=== PATIENT | female | born 1985 | race Caucasian/White ===

== ENCOUNTER 2022-08-07 17:56 | Inpatient (IN) | payer OTHER, SELFPAY ==
--- NOTE | ~2022-08-07 | US_ITS ---
EXAMINATION: US VENOUS ULTRASOUND WITH DOPPLER LOWER EXTREMITY, RIGHT CLINICAL INFORMATION: Right lower extremity pain and swelling. COMPARISON: None TECHNIQUE: Ultrasound of the deep veins is performed from the hip to the calf with compression sonography and color and pulse Doppler assessment. Spectral analysis with color-flow imaging is performed. FINDINGS: There is normal venous compression and respiratory variation and augmented flow. The visualized common femoral vein, superficial femoral vein, profunda femoral vein, popliteal vein and posterior tibialis veins show no evidence of deep venous thrombosis. The peroneal veins were not visualized secondary to patient body habitus and subcutaneous edema. There is no significant popliteal fossa cyst. If the patient's symptoms persist, followup ultrasound in 5 days 7 days might be of value to exclude proximal propagation from a non-visualized calf vein. US/US venous duplex LE RT IMPRESSION: 1. No DVT demonstrated in the right lower extremity with the caveat of suboptimal evaluation of the peroneal veins. 2. Significant soft tissue swelling, nonspecific, correlate with physical examination.
[2022-08-07 18:46] VITALS: BP 155/61; PULSE 94; RESP 20; TEMP 36.9; O2SAT 96; BMI 62.0
--- NOTE | 2022-08-07 18:58 | ED.GENADULT ---
HPI - General Adult General Chief complaint: Skin/Abscess/Foreign Body Stated complaint: Right leg swelling/discoloration Time Seen by Provider: 08/07/22 23:04 Source: patient Mode of arrival: ambulatory Limitations: no limitations History of Present Illness HPI narrative: Patient with lymphedema, diabetes with recurrent cellulitis comes here for increased redness of the right leg for last 3 - 4 days is getting worse now with history chills yesterday left over amoxicillin which she took yesterday.. No nausea no vomiting no significant pain in the leg no shortness of breath Related Data Allergies Allergy/AdvReac Type Severity Reaction Status Date / Time red dye Allergy Gastrointestinal Verified 08/07/22 18:53 Upset scallops Allergy Unknown Verified 08/07/22 18:53 Review of Systems Review of Systems: Yes all other systems are reviewed and are negative [facility] Past Medical History Medical History Diabetes GERD (gastroesophageal reflux disease) Lymphedema Social History Social History Advance Directives: No Advance Directives Information Provided: No Physical Exam ED Vital Signs: Vital Signs - 24 hr 08/07/22 18:46 08/07/22 23:08 Temperature 98.5 F 98.3 F Pulse Rate 94 86 Respiratory Rate 20 19 Blood Pressure 155/61 H 188/110 H Pulse Oximetry 96 96 Oxygen Delivery Method Room Air Room Air BMI result Body Mass Index 62.0 Appearance: Alert. Oriented X3. No acute distress. Eyes: PERRLA, No Nystagmus ENT: Pharynx normal. Oral Mucosa moist Neck: Normal inspection. Neck supple. CVS: Normal heart rate and rhythm. Pulses normal. Respiratory: No respiratory distress. Equal air entry bilateral, no wheezing/rales/rhonchi Abdomen: Soft and nontender. Bowel sounds are present, no mass palpable, no CVA tenderness Skin: Skin warm and dry. Cellulitic changes right leg Extremities: Lymphadema+ No calf tenderness significant redness and warmth right lower extremity all the way till knee with intact blister Neuro: Oriented X 3. No motor deficit. Medications Administered Generic Name Dose Route Start Last Admin Trade Name Freq PRN Reason Stop Dose Admin Enoxaparin Sodium 40 mg 08/08/22 00:45 08/08/22 03:15 Enoxaparin Sodium 40 Mg/0.4 Ml Syringe SUBCUT 40 mg Q24H SARA Administration Discontinued Medications Generic Name Dose Route Start Last Admin Trade Name Yaya PRN Reason Stop Dose Admin Vancomycin HCl 2,000 mg/ 540 mls @ 270 mls/hr 08/07/22 23:23 08/08/22 02:49 Sodium Chloride IV 08/08/22 01:22 270 mls/hr ONCE ONE Administration Piperacillin Sod/Tazobactam 100 mls @ 200 mls/hr 08/07/22 23:23 08/08/22 03:20 Sod 4.5 gm/ Sodium Chloride IV 08/07/22 23:52 Infused ONCE ONE Infusion Sodium Chloride 1,000 mls @ 999 mls/hr 08/07/22 23:24 08/08/22 00:22 Ns IV 08/08/22 00:24 999 mls/hr .Q1H1M ONE Administration Medical Decision Making Medical Decision Making MDM Narrative: Patient lymphedema with significant cellulitis of the right leg start patient on vancomycin and Zosyn Lab Data MDM Lab Attestation statement: I reviewed the patient's lab results. 08/07/22 19:08 08/07/22 19:08 Labs: Lab Results 08/07/22 08/07/22 08/07/22 Range/Units 19:08 19:08 19:08 WBC 6.9 (4.8-10.8) X10*3/uL RBC 4.43 (4.20-5.50) X10*6/uL Hgb 11.3 L (12.0-16.0) g/dl Hct 35.4 L (37.0-47.0) % MCV 79.9 L (80.0-98.0) fL MCH 25.5 L (27.0-33.0) pg MCHC 31.9 (31.0-35.0) g/dl RDW 15.2 (11.0-16.0) % Plt Count 228 (160-400) X10*3/uL MPV 8.4 L (9.4-12.3) fL Immature Gran % (Auto) 0.6 H (0.0-0.4) % Neut % (Auto) 74.1 H (45-73) % Lymph % (Auto) 18.8 L (20-40) % [place] % (Auto) 6.1 (2-11) % Eos % (Auto) 0.3 (0-4) % Baso % (Auto) 0.1 (0-2) % Lymph # (Auto) 1.3 (1.2-4.9) X10*3/uL [place] # (Auto) 0.4 (0.1-1.2) X10*3/uL Eos # (Auto) 0.0 (0.0-0.4) X10*3/uL Baso # (Auto) 0.0 (0.0-0.2) X10*3/uL Abs Immat Gran (auto) 0.04 H (0.00-0.03) X10*3/uL Absolute Neuts (auto) 5.1 (2.0-8.3) x10*3/uL Absolute Nucleated RBC 0.000 (0.0-0.012) X10*3/uL Nucleated RBC % (auto) 0.0 (0.0-0.2) /100WBC ESR 87 H (0-20) MM/HR Sodium 139 (135-145) mmol/L Potassium 3.8 (3.3-5.1) mmol/L Chloride 105 (96-108) mmol/L Carbon Dioxide 24 (22-29) mmol/L Anion Gap 14 (12-20) BUN 14 (9-16) mg/dL Creatinine 0.90 (0.5-1.4) mg/dL Estim Creat Clear Calc 156.6 Estimated GFR > 60 Random Glucose 248 H (60-115) mg/dL Lactic Acid (0.5-2.0) mmol/L Calcium 8.8 (8.4-10.2) mg/dL Total Bilirubin 0.5 (0.0-1.0) mg/dL AST 16 (5-31) U/L ALT 16 (0-31) U/L Alkaline Phosphatase 99 (39-117) U/L C-Reactive Protein 20.30 H (< or = 0.50) mg/dL Total Protein 7.0 (6.5-8.0) g/dL Albumin 3.7 (3.5-5.0) g/dL COVID-19 ([facility]) (Negative) COVID-19 Clin Com 08/07/22 08/07/22 Range/Units 23:43 23:43 WBC (4.8-10.8) X10*3/uL RBC (4.20-5.50) X10*6/uL Hgb (12.0-16.0) g/dl Hct (37.0-47.0) % MCV (80.0-98.0) fL MCH (27.0-33.0) pg MCHC (31.0-35.0) g/dl RDW (11.0-16.0) % Plt Count (160-400) X10*3/uL MPV (9.4-12.3) fL Immature Gran % (Auto) (0.0-0.4) % Neut % (Auto) (45-73) % Lymph % (Auto) (20-40) % [place] % (Auto) (2-11) % Eos % (Auto) (0-4) % Baso % (Auto) (0-2) % Lymph # (Auto) (1.2-4.9) X10*3/uL [place] # (Auto) (0.1-1.2) X10*3/uL Eos # (Auto) (0.0-0.4) X10*3/uL Baso # (Auto) (0.0-0.2) X10*3/uL Abs Immat Gran (auto) (0.00-0.03) X10*3/uL Absolute Neuts (auto) (2.0-8.3) x10*3/uL Absolute Nucleated RBC (0.0-0.012) X10*3/uL Nucleated RBC % (auto) (0.0-0.2) /100WBC ESR (0-20) MM/HR Sodium (135-145) mmol/L Potassium (3.3-5.1) mmol/L Chloride (96-108) mmol/L Carbon Dioxide (22-29) mmol/L Anion Gap (12-20) BUN (9-16) mg/dL Creatinine (0.5-1.4) mg/dL Estim Creat Clear Calc Estimated GFR Random Glucose (60-115) mg/dL Lactic Acid 1.0 (0.5-2.0) mmol/L Calcium (8.4-10.2) mg/dL Total Bilirubin (0.0-1.0) mg/dL AST (5-31) U/L ALT (0-31) U/L Alkaline Phosphatase (39-117) U/L C-Reactive Protein (< or = 0.50) mg/dL Total Protein (6.5-8.0) g/dL Albumin (3.5-5.0) g/dL COVID-19 ([facility]) Negative (Negative) COVID-19 Clin Com See Note Discharge Plan Discharge Clinical Impression: Cellulitis of leg, right Patient Disposition: Admitted As Inpatient
[2022-08-07 19:15] LABS: MANUAL DIFF FLAG NO
[2022-08-07 19:16] LABS: Basophils Percent Auto 0.1 % (0-2); Eosinophils Percent Auto 0.3 % (0-4); Hematocrit 35.4 % (37.0-47.0); Hemoglobin 11.3 g/dl (12.0-16.0); Imm Gran Abs Auto 0.04 X10*3/uL (0.00-0.03); Imm Gran Pct Auto 0.6 % (0.0-0.4); Lymphocytes Absolute Auto 1.3 X10*3/uL (1.2-4.9); Lymphocytes Percent Auto 18.8 % (20-40); Mean Corpuscular HGB Conc 31.9 g/dl (31.0-35.0); Mean Corpuscular Hemoglobin 25.5 pg (27.0-33.0); Mean Corpuscular Volume 79.9 fL (80.0-98.0); Mean Platelet Volume 8.4 fL (9.4-12.3); Monocytes Absolute Auto 0.4 X10*3/uL (0.1-1.2); Monocytes Percent Auto 6.1 % (2-11); Neutrophils Absolute Auto 5.1 x10*3/uL (2.0-8.3); Neutrophils Percent Auto 74.1 % (45-73); Platelet Count 228 X10*3/uL (160-400); Red Blood Count 4.43 X10*6/uL (4.20-5.50); Red Cell Distribution Width 15.2 % (11.0-16.0); White Blood Count 6.9 X10*3/uL (4.8-10.8)
[2022-08-07 19:29] LABS: Alanine Aminotransferase 16 U/L (0-31); Albumin Level 3.7 g/dL (3.5-5.0); Alkaline Phosphatase 99 U/L (39-117); Anion Gap 14 (12-20); Aspartate Amino Transferase 16 U/L (5-31); Bilirubin Total 0.5 mg/dL (0.0-1.0); Blood Urea Nitrogen 14 mg/dL (9-16); Calcium 8.8 mg/dL (8.4-10.2); Carbon Dioxide 24 mmol/L (22-29); Chloride 105 mmol/L (96-108); Creatinine Clr Calc Pharmacy 156.6; Estimated Glomerular Filt Rate > 60; Glucose Random 248 mg/dL (60-115); Potassium 3.8 mmol/L (3.3-5.1); Sodium 139 mmol/L (135-145)
[2022-08-07 20:00] LABS: Erythrocyte Sedimentation Rate 87 MM/HR (0-20)
[2022-08-07 23:08] VITALS: BP 188/110; PULSE 86; RESP 19; TEMP 36.8; O2SAT 96
[2022-08-08 00:03] LABS: COVID-19 Test Negative (Negative); IDNOW Serial# BCCEAD1C
[2022-08-08] MEDS: Piperacillin Sodium/Tazobactam 4.5 GM in 0.9 % Sodium Chloride 100 ML IV (00:17)
[2022-08-08] MEDS: 0.9 % Sodium Chloride 1,000 ML 999 ML IV (00:22)
--- NOTE | 2022-08-08 00:35 | PM.IMHP ---
History of Present Illness Date of Service: 08/08/22 Chief Complaint: Right leg cellulitis This is a 36-year-old female with pertinent history of obesity, lymphedema, cig-awagwbo-iptizokdc diabetes mellitus, gastroesophageal reflux disease who presents to the emergency department with right lower leg swelling and redness. Patient states it started about 4 days prior to presentation. She also has been having associated fevers and chills. Patient tried amoxicillin but without much relief. It has been draining purulent fluid intermittently. States she has bilateral lower extremity lymphedema and had cellulitis about 10 months ago. No trauma or insect bite. Denies nausea, vomiting, chest discomfort, palpitations, shortness of breath, abdominal pain, changes in urinary or bowel habits. Review of Systems Constitutional: Constitutional: Reports chills and Reports fever(s) Cardiovascular: Cardiovascular: Reports no additional cardiovascular complaints Respiratory: Respiratory: Reports no additional respiratory complaints Gastrointestinal: Gastrointestinal: Reports no additional gastrointestinal complaints Genitourinary: Genitourinary: Reports no additional female genitourinary complaints Musculoskeletal: Comments: Right leg swelling and redness PMFSH Medical History Diabetes GERD (gastroesophageal reflux disease) Lymphedema Pertinent family history: Father and mother with diabetes mellitus Social History Advance Directives: No Advance Directives Information Provided: No Meds Allergies Allergy/AdvReac Type Severity Reaction Status Date / Time red dye Allergy Gastrointestinal Verified 08/07/22 18:53 Upset scallops Allergy Unknown Verified 08/07/22 18:53 Active Medications: Current Medications Vancomycin HCl 2,000 mg/ (Sodium Chloride) 540 mls @ 270 mls/hr IV ONCE ONE Stop: 08/08/22 01:22 Pharmacy Consult (Consult Rx Vancomycin Dosing) 1 each MISCELLANE DAILY PRN PRN Reason: Consult order Pharmacy Consult (Consult Rx Perform Med Rec) 1 each MISCELLANE ONCE PRN PRN Reason: Consult order Physical Exam Vital Signs and Narrative: Vital Signs: Last Vital Signs Temp 98.3 F 08/07/22 23:08 Pulse 86 08/07/22 23:08 Resp 19 08/07/22 23:08 BP 188/110 H 08/07/22 23:08 Pulse Ox 96 08/07/22 23:08 O2 Del Method 08/07/22 23:08 BMI result Body Mass Index 62.0 Middle-aged female lying in bed in no distress Neck supple, no JVD Regular rate and rhythm, S1-S2 heard Regular breath sounds bilaterally, no wheezing or crackles appreciated Abdomen soft nontender, no guarding, no rigidity Patient is awake, alert and oriented to self, place, time and person ; no focal motor deficit Psych: Normal mood Right lower extremity with swelling, redness, warmth ; left lower extremity swelling present Results Labs 08/07/22 19:08 08/07/22 19:08 Labs: Laboratory Results - last 24 hr 08/07/22 08/07/22 08/07/22 19:08 19:08 19:08 MCV 79.9 L MCH 25.5 L MCHC 31.9 RDW 15.2 Plt Count 228 MPV 8.4 L Immature Gran % (Auto) 0.6 H Neut % (Auto) 74.1 H Lymph % (Auto) 18.8 L [place] % (Auto) 6.1 Eos % (Auto) 0.3 Baso % (Auto) 0.1 Lymph # (Auto) 1.3 [place] # (Auto) 0.4 Eos # (Auto) 0.0 Baso # (Auto) 0.0 Abs Immat Gran (auto) 0.04 H Absolute Neuts (auto) 5.1 Absolute Nucleated RBC 0.000 Nucleated RBC % (auto) 0.0 ESR 87 H Anion Gap 14 Estim Creat Clear Calc 156.6 Estimated GFR > 60 Random Glucose 248 H Lactic Acid Calcium 8.8 Total Bilirubin 0.5 AST 16 ALT 16 Alkaline Phosphatase 99 C-Reactive Protein 20.30 H Total Protein 7.0 Albumin 3.7 COVID-19 ([facility]) COVID-19 Clin Com 08/07/22 08/07/22 23:43 23:43 MCV MCH MCHC RDW Plt Count MPV Immature Gran % (Auto) Neut % (Auto) Lymph % (Auto) [place] % (Auto) Eos % (Auto) Baso % (Auto) Lymph # (Auto) [place] # (Auto) Eos # (Auto) Baso # (Auto) Abs Immat Gran (auto) Absolute Neuts (auto) Absolute Nucleated RBC Nucleated RBC % (auto) ESR Anion Gap Estim Creat Clear Calc Estimated GFR Random Glucose Lactic Acid 1.0 Calcium Total Bilirubin AST ALT Alkaline Phosphatase C-Reactive Protein Total Protein Albumin COVID-19 ([facility]) Negative COVID-19 Clin Com See Note Imaging Radiologist's Impressions: Impressions Venous Duplex 08/07/22 19:21 IMPRESSION: 1. No DVT demonstrated in the right lower extremity with the caveat of suboptimal evaluation of the peroneal veins. 2. Significant soft tissue swelling, nonspecific, correlate with physical examination. Assessment and Plan (1) Cellulitis: Status: Acute (2) Lymphedema: Status: Acute (3) Obesity: Status: Acute (4) Diabetes: Status: Acute (5) GERD (gastroesophageal reflux disease): Status: Acute Plan This is a 36-year-old female with pertinent history of obesity, lymphedema, fje-wkavhyb-qgwfydapx diabetes mellitus, gastroesophageal reflux disease who presents to the emergency department with right lower leg swelling and redness. #. Right lower extremity purulent cellulitis in a patient with lymphedema: Failed p.o. outpatient antibiotics. Will admit patient and initiate IV vancomycin. Follow-up blood cultures #. Jai-tdguady-vdgvwkhdi diabetes mellitus: Hold metformin and initiate Accu-Cheks with sliding scale insulin before meals and at bedtime #. Gastroesophageal reflux disease: On PPI #. Obesity: Counseled regarding diet and exercise DVT prophylaxis: Lovenox 40 mg daily Diabetic diet Full code Admit as inpatient and will require two night minimum hospital stay for IV antibiotics Time Spent With Patient Time: Total time managing care of this patient today ____ minutes. Quality Stroke Does the patient have a stroke diagnosis?: No VTE Prior VTE?: No VTE Risk Level:: Medical - moderate - high VTE Device Contraindication: Treatment Not Indicated VTE Drug Contraindication: N/A - Med Ordered
[2022-08-08 00:47] VITALS: BP 150/80; PULSE 83; RESP 20; TEMP 37.1; O2SAT 98
[2022-08-08] MEDS: Enoxaparin Sodium 40 MG/0.4 ML SYRINGE SUBCUT (03:15)
--- NOTE | 2022-08-08 06:35 | PHA.PROG ---
Admission Date/Time: August 08, 2022 00:33 Indication: SKIN/SKIN STRUCTURE Weight in k.509 kg Adjusted body weight in K.924 [place] body weight in Kg: Obesity Dosing Indication % IBW: Serum Creatinine - Last 168 Hours 08/07/22 19:08 Creatinine 0.90 Estimated CrCl and GFR - Last 168 Hours 08/07/22 19:08 Estim Creat Clear Calc 156.6 Estimated GFR > 60 Vancomycin Loading Dose: 2000MG Current Vancomycin Dosing Regimen: 1250 Q12H Vancomycin Monitoring using AUC goal of 400 - 600 range with trough as surrogate marker: AUC 555, TROUGH 15.5 Date and Time for next Vancomycin Level to be drawn: 08/09 @0900 Pharmacist Comments on Vancomycin Plan: OBESE MODEL Vancomycin dosing will take advantage of [employer] as a clinical decision support tool that uses Bayesian modeling to calculate individual patient's pharmacokinetic parameters and forecast the patient's drug concentration time course with the target goal AUC 24 range of 400 - 600 mg/L/hr.
[2022-08-08 06:49] LABS: MANUAL DIFF FLAG NO
[2022-08-08 06:54] LABS: Basophils Percent Auto 0.2 % (0-2); Eosinophils Percent Auto 0.3 % (0-4); Hematocrit 31.1 % (37.0-47.0); Hemoglobin 9.8 g/dl (12.0-16.0); Imm Gran Abs Auto 0.05 X10*3/uL (0.00-0.03); Imm Gran Pct Auto 0.8 % (0.0-0.4); Lymphocytes Absolute Auto 1.6 X10*3/uL (1.2-4.9); Lymphocytes Percent Auto 26.6 % (20-40); Mean Corpuscular HGB Conc 31.5 g/dl (31.0-35.0); Mean Corpuscular Hemoglobin 25.4 pg (27.0-33.0); Mean Corpuscular Volume 80.6 fL (80.0-98.0); Mean Platelet Volume 8.9 fL (9.4-12.3); Monocytes Absolute Auto 0.4 X10*3/uL (0.1-1.2); Monocytes Percent Auto 5.9 % (2-11); Neutrophils Absolute Auto 3.9 x10*3/uL (2.0-8.3); Neutrophils Percent Auto 66.2 % (45-73); Platelet Count 211 X10*3/uL (160-400); Red Blood Count 3.86 X10*6/uL (4.20-5.50); Red Cell Distribution Width 15.3 % (11.0-16.0); White Blood Count 5.9 X10*3/uL (4.8-10.8)
[2022-08-08 07:23] VITALS: BP 140/86; PULSE 80; RESP 18; TEMP 36.9; O2SAT 98
[2022-08-08 07:25] LABS: Anion Gap 13 (12-20); Blood Urea Nitrogen 14 mg/dL (9-16); Calcium 8.2 mg/dL (8.4-10.2); Carbon Dioxide 23 mmol/L (22-29); Chloride 107 mmol/L (96-108); Creatinine Clr Calc Pharmacy 167.8; Estimated Glomerular Filt Rate > 60; Glucose Random 276 mg/dL (60-115); Potassium 3.6 mmol/L (3.3-5.1); Sodium 139 mmol/L (135-145)
[2022-08-08 07:41] LABS: Glucose, Whole Blood 245 mg/dL (60-115)
[2022-08-08] MEDS: Insulin Lispro 100 UNIT/ML 3 ML VIAL SUBCUT ×4 (07:56→22:07)
[2022-08-08] MEDS: 0.9 % Sodium Chloride Flush 3 ML SYRINGE IVFLUSH ×3 (07:57→23:57)
--- NOTE | 2022-08-08 07:58 | PC.NURSE ---
pt is a/o x 4 no sob/chelsie speaks in full sentences.lungs - slightly diminished all lobes. heart sounds regular. abd [id number], soft and non-tender. maria esther leg edema noted ecezema to maria esther lower leg. r lower leg closed blisters, edema and beet redness noted. stuart. pt aware of plan of care.
--- NOTE | 2022-08-08 08:01 | PHA.MEDREC ---
Pharmacy Consult ? Medication Reconciliation Pharmacy has completed the medication reconciliation.
--- NOTE | 2022-08-08 09:54 | MHC.CM.PN ---
CM spoke with Patient over the phone at [phone]. 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 Home/self care is the goal and CM has initiated and will follow for dc planning. PCP is from [place] and Patient has received Zinch/reQall vax x3.
[2022-08-08 10:09] VITALS: BP 149/92; PULSE 74; RESP 16; TEMP 36.7; O2SAT 99
--- NOTE | 2022-08-08 10:13 | PM.EVENT ---
Event Note Date of Service: 08/08/22 Event Note: Day Team Follow up S Seen and examined this AM Reports feeling the same O vitals -- last documented RLE -- erythema from up to the knee with warmth/tednerness and edema A/P 36 yo with lymphedema admitted for RLE cellulitis continue vancomcyin f/u cultures remainder per H&P from the AM Time Spent With Patient Time: Total time managing care of this patient today ____ minutes.
[2022-08-08] MEDS: Omeprazole 20 MG CAPSULE.DR PO (10:37)
[2022-08-08] MEDS: vancomycin HCL 1,250 MG in 0.9 % Sodium Chloride 250 ML 166.67 MG IV ×2 (10:38→22:12)
--- NOTE | 2022-08-08 11:00 | PC.NURSE ---
rn to rn report given to rico fernando to be transferred to the ed overflow unit. pt is aware of plan of care.
[2022-08-08 11:45] VITALS: BP 152/68; PULSE 69; RESP 20; TEMP 36.8; O2SAT 97
[2022-08-08 13:02] LABS: Glucose, Whole Blood 180 mg/dL (60-115)
--- NOTE | 2022-08-08 15:13 | PC.NURSE ---
patient a&ox3, denies pain at this time, pt currently watching tv/sitting at bedside, call rachel within reach, will continue to monitor
[2022-08-08 18:19] LABS: Glucose, Whole Blood 197 mg/dL (60-115)
[2022-08-08 19:14] VITALS: BP 126/60; PULSE 70; RESP 17; TEMP 36; O2SAT 96
[2022-08-08 20:06] VITALS: BP 144/76; PULSE 63; RESP 17; TEMP 36.2; O2SAT 94
[2022-08-08 21:34] LABS: Glucose, Whole Blood 209 mg/dL (60-115)
[2022-08-09] MEDS: Enoxaparin Sodium 40 MG/0.4 ML SYRINGE SUBCUT (00:08)
[2022-08-09 04:00] VITALS: BP 135/63; PULSE 66; RESP 18; TEMP 36; O2SAT 96
[2022-08-09 06:37] LABS: Creatinine Clr Calc Pharmacy 178.4; Estimated Glomerular Filt Rate > 60
[2022-08-09] MEDS: Acetaminophen 325 MG TABLET 650 MG PO (06:39)
[2022-08-09] MEDS: Omeprazole 20 MG CAPSULE.DR PO (06:39)
[2022-08-09] MEDS: 0.9 % Sodium Chloride Flush 3 ML SYRINGE IVFLUSH ×3 (07:29→20:47)
[2022-08-09 07:43] LABS: Glucose, Whole Blood 196 mg/dL (60-115)
[2022-08-09] MEDS: Insulin Lispro 100 UNIT/ML 3 ML VIAL SUBCUT ×4 (07:56→20:47)
[2022-08-09 08:00] VITALS: BP 142/71; PULSE 68; RESP 18; TEMP 36.4; O2SAT 96
[2022-08-09 10:10] LABS: Vancomycin Trough 7.4 mcg/mL (10.0-20.0)
--- NOTE | 2022-08-09 10:22 | HE.PHANOTE ---
Vancomcyin Dosing Level subtherapeutic at 7 today. Will increase dose to 1250 mg Q8H, new expected AUC 572 with a trough of 12.9. Next level to be drawn 08/10 @ 0900. Carrington GodinezD
--- NOTE | 2022-08-09 10:34 | P.PNIM_ITS ---
Subjective Subjective Date of Service: 08/09/22 Interval History: Seen in follow-up for lymphedema with right lower extremity cellulitis Interval history: Improvement in erythema and pain. Reports 2/10 pain in the right lower extremity at its worst. Review of Systems Review of Systems: Yes all other systems are reviewed and are negative Physical Exam Vital Signs: Vital Signs: Last Vital Signs Temp 97.6 F 08/09/22 08:00 Pulse 68 08/09/22 08:00 Resp 18 08/09/22 08:00 BP 142/71 H 08/09/22 08:00 Pulse Ox 96 08/09/22 08:00 O2 Del Method 08/09/22 08:00 BMI result Body Mass Index 62.0 Constitutional - Awake and Alert, No apparent distress Eyes - PERRLA, EOMI Cardiovascular - S1S2, RRR, No edema Respiratory - Normal lung expansion, Normal respiratory effort, No respiratory distress, CTA bilaterally Gastrointestinal - NT / ND; +BS; No rebound or guarding Extremities - no calf tenderness bilaterally, no swelling Skin - Warm/Dry. Lymphedema BLE. Receding erythema RLE with warmth without purulent drainage. See photo Neurological - Alert & oriented x3 Psychological - Appropriate affect Objective Data Active Medications Acetaminophen (Acetaminophen 325 Mg Tablet) 650 mg PO Q6H PRN PRN Reason: Pain, Mild (Pain Scale 1-3) Last Admin: 08/09/22 06:39 Dose: 650 mg Documented By: EBONI Dextrose (Dextrose 50 % 25 Gm/50 Ml Syringe) 25 gm IVPUSH Q15M PRN; Protocol PRN Reason: per Hypoglycemia Standing Ord. Enoxaparin Sodium (Enoxaparin Sodium 40 Mg/0.4 Ml Syringe) 40 mg SUBCUT Q24H SARA Last Admin: 08/09/22 00:08 Dose: 40 mg Documented By: EBONI Glucose (Glucose Gel 15 Gm Gel..Gram.) 15 gm PO Q15M PRN; Protocol PRN Reason: per Hypoglycemia Standing Ord. Vancomycin HCl 1,250 mg/ (Sodium Chloride) 250 mls @ 166.667 mls/hr IV Q8H SARA Insulin Human Lispro (Insulin Lispro 100 Unit/Ml 3 Ml Vial) 0.1 - 10 unit SUBCUT QIDAC[facility]; Protocol Last Admin: 08/09/22 07:56 Dose: 2 unit Documented By: ANGELLA Melatonin (Melatonin 3 Mg Tablet) 6 mg PO BEDTIME PRN PRN Reason: Insomnia Omeprazole (Omeprazole 20 Mg Capsule.) 20 mg PO DAILY@0630 [facility] Last Admin: 08/09/22 06:39 Dose: 20 mg Documented By: EBONI Ondansetron HCl (Ondansetron Hcl 4 Mg/2 Ml Vial) 4 mg IVPUSH Q8H PRN PRN Reason: Nausea and Vomiting Pharmacy Consult (Consult Rx Vancomycin Dosing) 1 each MISCELLANE DAILY PRN PRN Reason: Consult order Pharmacy Consult (Consult Rx Perform Med Rec) 1 each MISCELLANE ONCE PRN PRN Reason: Consult order Sodium Chloride (0.9 % Sodium Chloride Flush 3 Ml Syringe) 3 ml IVFLUSH QSHIFT [facility] Last Admin: 08/09/22 07:29 Dose: 3 ml Documented By: ANGELLA Labs 08/08/22 05:52 08/09/22 05:31 Labs: Laboratory Results - last 24 hr 08/08/22 08/08/22 08/08/22 12:36 18:12 21:30 Estim Creat Clear Calc Estimated GFR POC Glucose 180 H 197 H 209 H Vancomycin Trough 08/09/22 08/09/22 08/09/22 05:31 07:38 08:58 Estim Creat Clear Calc 178.4 Estimated GFR > 60 POC Glucose 196 H Vancomycin Trough 7.4 L Microbiology Microbiology Results: Microbiology 08/07/22 23:43 Blood Culture - Preliminary Blood - Venous No growth after 24 hours. 08/07/22 23:43 Blood Culture - Preliminary Blood - Venous No growth after 24 hours. Assessment and Plan (1) Cellulitis of leg, right: Status: Acute (2) Lymphedema: Status: Acute Plan This is a 36-year-old female with pertinent history of obesity, lymphedema, n ub-jpderun-gfncgmojd diabetes mellitus, gastroesophageal reflux disease admitted for right lower extremity cellulitis #Right lower extremity purulent cellulitis- improving without further purulent draiange -Failed p.o. outpatient antibiotics -Continue vancomycin -Follow cultures? #Lymphedema -Pt educated on lymphedema -Wound care consult. Should follow outpt with wound clinic/lymphedema clinic -Encouraged ongoing weight loss efforts with healthy diet and exercise #Iur-tobctdf-inhanscht diabetes mellitus type 2 with hyperglycemia -POC glucose -Diabetic diet -Humalog on sliding scale. hold metformin #.? Gastroesophageal reflux disease -continue PPI # Morbid Obesity with BMI >62 - Counseled regarding diet and exercise DVT prophylaxis:? Lovenox 40 mg daily Diabetic diet Full code Pt requires ongoing inpatient stay for IV antibiotics for RLE cellulitis having failed outpt abx Time spent in interview with patient, documentation, reviewing history and physical,, BMP, point of care glucose, blood cultures, and management of medications Time Spent With Patient Time: Total time managing care of this patient today 25 minutes. Quality Stroke Does the patient have a stroke diagnosis?: No VTE Prior VTE?: No VTE Risk Level:: Medical - moderate - high VTE Device Contraindication: Treatment Not Indicated VTE Drug Contraindication: N/A - Med Ordered
[2022-08-09] MEDS: vancomycin HCL 1,250 MG in 0.9 % Sodium Chloride 250 ML 166.67 MG IV ×2 (10:55→18:25)
[2022-08-09 11:26] LABS: Glucose, Whole Blood 223 mg/dL (60-115)
[2022-08-09 15:58] VITALS: BP 173/95; PULSE 58; RESP 16; TEMP 36.1; O2SAT 97
[2022-08-09 16:35] LABS: Glucose, Whole Blood 162 mg/dL (60-115)
[2022-08-09 17:33] VITALS: BP 164/81
[2022-08-09 19:46] VITALS: BP 155/74; PULSE 71; RESP 18; TEMP 36.6; O2SAT 96
[2022-08-09 20:33] LABS: Glucose, Whole Blood 274 mg/dL (60-115)
[2022-08-10] MEDS: Enoxaparin Sodium 40 MG/0.4 ML SYRINGE SUBCUT (00:41)
[2022-08-10] MEDS: vancomycin HCL 1,250 MG in 0.9 % Sodium Chloride 250 ML 166.67 MG IV ×2 (02:20→12:18)
[2022-08-10 04:00] VITALS: BP 131/64; PULSE 64; RESP 18; TEMP 36; O2SAT 96
[2022-08-10] MEDS: Omeprazole 20 MG CAPSULE.DR PO (05:30)
[2022-08-10 06:09] LABS: Estimated Glomerular Filt Rate > 60
[2022-08-10 08:00] VITALS: BP 122/70; PULSE 71; RESP 18; TEMP 36.2; O2SAT 94
[2022-08-10 08:00] LABS: Glucose, Whole Blood 167 mg/dL (60-115)
[2022-08-10] MEDS: Insulin Lispro 100 UNIT/ML 3 ML VIAL SUBCUT ×2 (08:47→12:18)
[2022-08-10] MEDS: 0.9 % Sodium Chloride Flush 3 ML SYRINGE IVFLUSH (08:48)
[2022-08-10 11:19] LABS: Vancomycin Trough 10.8 mcg/mL (10.0-20.0)
[2022-08-10 11:23] LABS: Glucose, Whole Blood 191 mg/dL (60-115)
--- NOTE | 2022-08-10 11:29 | HE.PHANOTE ---
Vancomycin Dosing Level therapeutic today. Continue current regimen. Next trough 08/11 @ 1000. Huong Granger PharmD
--- NOTE | 2022-08-10 15:25 | P.DS_ITS ---
DS: Providers Provider Date of Service: 08/10/22 Date of admission: 08/08/22 00:33 Date of discharge: 08/10/22 Primary care physician: Unknown Physician Attending physician on admission: Melvin Laird Consults: 08/09/22 10:35 Consult to Wound Care Routine Consulting Provider: [facility] Wound Care Management Reason for consultation: lymphedema Attending physician on discharge: Christine Zambrano Discharging clinician: Dena Dalal DS: Diagnosis Discharge Diagnosis (1) Cellulitis of leg, right: Status: Acute (2) Lymphedema: Status: Acute DS: Summary Hospital Course Hospital Course: HPI on admission 08/08/[address] Laird: Chief Complaint: Right leg cellulitis This is a 36-year-old female with pertinent history of obesity, lymphedema, [id number] diabetes mellitus, gastroesophageal reflux disease who presents to the emergency department with right lower leg swelling and redness.? Patient states it started about 4 days prior to presentation.? She also has been having associated fevers and chills.? Patient tried amoxicillin but without much relief.? It has been draining purulent fluid intermittently.? States she has bilateral lower extremity lymphedema and had cellulitis about 10 months ago.? No trauma or insect bite.? Denies nausea, vomiting, chest discomfort, palpitations, shortness of breath, abdominal pain, changes in urinary or bowel habits. Hospital Course: Hospital course uneventful. CRP elevated at 20.30 on admission. Treated with IV vancomycin for RLE cellulitis in the setting of lymphedema with improvement in pain, erythema, and warmth. Hemodyanically stable throughout admission without leukocytosis. She will be discharged on PO augmentin and doxycycline BID x 6 days. She is referred to the wound clinic for lymphedema management and is encouraged to continue with her weight loss efforts and is congratulated on efforts thus far. Follow up with PCP soon. Status at Discharge Functional status at discharge: independent ambulation Overall status at discharge: patient is progressing back to baseline Time Spent with Patient Time attestation: Total time managing care of this patient today 35 minutes. Discharge coordination time: Greater than 30 minutes Quality: Safe Use of Opioids Does Pt have an Active Cancer Diagnosis on the Problem List?: No Quality: Stroke Does the patient have a stroke diagnosis?: No Physical Exam Vital Signs: Vital Signs: Last Vital Signs Temp 97.2 F 08/10/22 08:00 Pulse 71 08/10/22 08:00 Resp 18 08/10/22 08:00 BP 122/70 08/10/22 08:00 Pulse Ox 94 08/10/22 08:00 O2 Del Method 08/10/22 08:00 BMI result Body Mass Index 62.0 Constitutional - Awake and Alert, No apparent distress Eyes - PERRLA, EOMI Cardiovascular - S1S2, RRR, No edema Respiratory - Normal lung expansion, Normal respiratory effort, No respiratory distress, CTA bilaterally Gastrointestinal - NT / ND; +BS; No rebound or guarding Extremities - no calf tenderness bilaterally, no swelling Skin - Warm/Dry. Lymphedema BLE. Receding erythema RLE with warmth without purulent drainage. See photo Neurological - Alert & oriented x3 Psychological - Appropriate affect DS: Data Data Completed and Pending Labs on day of discharge: Laboratory Results - last 24 hr 08/09/22 08/09/22 08/10/22 16:31 20:29 05:32 Creatinine 0.77 Estim Creat Clear Calc 183.0 Estimated GFR > 60 POC Glucose 162 H 274 H Vancomycin Trough 08/10/22 08/10/22 08/10/22 07:36 10:50 11:07 Creatinine Estim Creat Clear Calc Estimated GFR POC Glucose 167 H 191 H Vancomycin Trough 10.8 Preliminary micro results at discharge 08/07/22 23:43 Blood Culture - Preliminary Blood - Venous No growth after 48 hours. 08/07/22 23:43 Blood Culture - Preliminary Blood - Venous No growth after 48 hours. Discharge Plan Discharge Anticipated Discharge Date/Time: 08/10/22 15:04 Patient Disposition: Home, Self-Care Discharge Diagnosis: Cellulitis right lower leg, lymphedema Referrals: Tonya Martinez MD [Physician] - 1 Week (lymphedema management) Physician,Treasure J [Primary Care Provider] - 1 Week Discharge Medications: New amoxicillin 875 mg tablet 875 mg PO BID Qty: 12 0RF doxycycline hyclate 100 mg capsule 100 mg PO BID Qty: 12 0RF Continued multivitamin Tablet 1 tab PO DAILY omeprazole 20 mg Capsule,Delayed Release(Dr/Ec) 20 mg PO DAILY@0630 metformin 500 mg tablet extended release 24 hr 1 tab PO BID Discharge Orders: Discharge Order (Routine); Ordered 08/10/22 Ordered By: Dena Dalal Diet: Diabetic diet Activity on Discharge: As tolerated Stand Alone Forms: Patient Portal Discharge page Care Plan Goals: Continue treatment of cellulitis with oral antibiotics Manage lymphedema at lymphedema clinic/wound clinic and continued weight loss efforts Health Concerns: Cellulitis right lower leg Lymphedema Morbid obesity Plan of Treatment: Cellulitis right lower extremity -Treated with IV vancomycin x 4 days. Complete additional 6 days of Augmentin and doxycycline. Next dose due tomorrow morning (08/11) Lymphedema -Follow up with wound care clinic or lymphedema clinic -Continue working on weight loss efforts Follow up with pcp Assessment: As above
--- NOTE | 2022-08-10 16:02 | MHC.CM.PN ---
PT WILL DC HOME TODAY WITH NO SERVICES PT TO ARRANGE TRANSPORT
== END 2022-08-10 16:40 | disposition home or self-care (01) | DRG 383 ==
LOC: HO.ED 23:04 → HO.EDOVER 08-08 00:37 → HO.S3 08-08 16:29
PROVIDERS: Family Medicine; Internal Medicine; Nurse Practitioner Family; Admitting Provider Student in an Organized Health Care Education/Training Program; Emergency Provider Internal Medicine; PCP Family Medicine; Visit Provider Physician Assistant
DX: L03.115 Cellulitis of right lower limb (principal); Z68.44 Body mass index [BMI] 60.0-69.9, adult; K21.9 Gastro-esophageal reflux disease without esophagitis; E11.65 Type 2 diabetes mellitus with hyperglycemia; I89.0 Lymphedema, not elsewhere classified; E66.9 Obesity, unspecified; Z20.822 Contact with and (suspected) exposure to COVID-19; Z87.891 Personal history of nicotine dependence; Z79.84 Long term (current) use of oral hypoglycemic drugs; Z79.899 Other long term (current) drug therapy
CPT/HCPCS: 36415; 80048; 80053; 80202; 82565; 82947; 83605; 85025; 85652; 86140; 87040; 87635; 93971; 99221; 99285; J1650; J2543; J3370; J3371

== ENCOUNTER 2022-09-12 21:01 | Emergency (ER) | payer OTHER, SELFPAY ==
[2022-09-12 21:47] VITALS: BP 135/92; PULSE 122; RESP 24; TEMP 38.7; O2SAT 97; BMI 60.0
[2022-09-12 22:17] LABS: Basophils Percent Auto 0.1 % (0-2); Eosinophils Percent Auto 0.1 % (0-4); Hematocrit 34.9 % (37.0-47.0); Hemoglobin 11.3 g/dl (12.0-16.0); Imm Gran Abs Auto 0.07 X10*3/uL (0.00-0.03); Imm Gran Pct Auto 0.5 % (0.0-0.4); Lymphocytes Absolute Auto 0.9 X10*3/uL (1.2-4.9); Lymphocytes Percent Auto 6.2 % (20-40); MANUAL DIFF FLAG NO; Mean Corpuscular HGB Conc 32.4 g/dl (31.0-35.0); Mean Corpuscular Hemoglobin 25.5 pg (27.0-33.0); Mean Corpuscular Volume 78.6 fL (80.0-98.0); Mean Platelet Volume 8.3 fL (9.4-12.3); Monocytes Absolute Auto 0.6 X10*3/uL (0.1-1.2); Monocytes Percent Auto 3.9 % (2-11); Neutrophils Absolute Auto 12.4 x10*3/uL (2.0-8.3); Neutrophils Percent Auto 89.2 % (45-73); Platelet Count 253 X10*3/uL (160-400); Red Blood Count 4.44 X10*6/uL (4.20-5.50); Red Cell Distribution Width 15.7 % (11.0-16.0)
[2022-09-12 22:57] LABS: Alanine Aminotransferase 16 U/L (0-31); Albumin Level 3.8 g/dL (3.5-5.0); Alkaline Phosphatase 98 U/L (39-117); Anion Gap 13 (12-20); Aspartate Amino Transferase 14 U/L (5-31); Bilirubin Total 0.8 mg/dL (0.0-1.0); Blood Urea Nitrogen 14 mg/dL (9-16); Calcium 8.8 mg/dL (8.4-10.2); Carbon Dioxide 24 mmol/L (22-29); Chloride 100 mmol/L (96-108); Creatinine Clr Calc Pharmacy 145.4; Estimated Glomerular Filt Rate > 60; Glucose Random 264 mg/dL (60-115); Potassium 4.3 mmol/L (3.3-5.1); Sodium 133 mmol/L (135-145); Total Protein 6.8 g/dL (6.5-8.0)
[2022-09-13 04:50] VITALS: BP 119/59; PULSE 91; RESP 18; TEMP 37.2; O2SAT 98
--- NOTE | 2022-09-13 04:52 | PC.NURSE ---
Lab called with a critical result, lactic acid 2.1. notified.
[2022-09-13 04:53] LABS: Lactic Acid 2.1 mmol/L (0.5-2.0)
--- NOTE | 2022-09-13 05:32 | ED.GENADULT ---
HPI - General Adult General Chief complaint: General Medical Stated complaint: Body Chills, shakes, r leg is hot Time Seen by Provider: 09/13/22 05:17 Source: patient Mode of arrival: ambulatory Limitations: no limitations History of Present Illness HPI narrative: 36-year-old female presents with cellulitis to the right lower extremity. She was discharged to beginning of August with similar symptoms. Over the last 24 hours, however, patient developed increasing redness of the right lower extremity. She also had fever and chills. The fever and chills have since resolved overall she feels well. The redness and swelling came on somewhat rapidly. She does have some discomfort associated with it. Discomfort does not radiate. It is worse with palpation and movement. Patient reports that her infection last time was much worse than it is today. She has been off oral antibiotics for least a couple weeks. Related Data Home Medications Medication Instructions Recorded Confirmed metformin 500 mg tablet,extended 1 tab PO BID 08/08/22 08/08/22 release 24 hr multivitamin 1 tab PO DAILY 08/08/22 08/08/22 omeprazole 20 mg capsule,delayed 20 mg PO DAILY@0630 08/08/22 08/08/22 release Previous Rx's Medication Instructions Recorded amoxicillin 875 mg tablet 875 mg PO BID #12 tabs 08/10/22 doxycycline hyclate 100 mg capsule 100 mg PO BID #12 caps 08/10/22 amoxicillin 875 mg tablet 875 mg PO BID #24 tabs 09/13/22 doxycycline monohydrate 100 mg 100 mg PO BID 14 days #28 caps 09/13/22 capsule Allergies Allergy/AdvReac Type Severity Reaction Status Date / Time mold Allergy Runny Nose Verified 09/12/22 21:52 red dye Allergy Gastrointestinal Verified 08/07/22 18:53 Upset scallops Allergy Unknown Verified 08/07/22 18:53 Review of Systems Review of Systems: CONSTITUTIONAL: Denies weight loss, fever and chills. HEENT: Denies changes in vision and hearing. RESPIRATORY: Denies SOB and cough. CV: Denies palpitations no CP. GI: Denies abdominal pain, nausea, vomiting and diarrhea. : Denies dysuria and urinary frequency. MSK: Denies myalgia and joint pain. SKIN: Denies rash and pruritus. NEUROLOGICAL: Denies headache and syncope. PSYCHIATRIC: Denies recent changes in mood. Denies anxiety and depression. All other ROS are negative unless in [facility]PI [facility] Past Medical History Medical History Diabetes GERD (gastroesophageal reflux disease) Lymphedema Social History Social History Household Members: Friend(s) Housing: Apartment Do you presently have visiting nurse or other home services: No Alcohol intake: current Alcohol intake frequency: holidays/special occasions only Alcohol type: hard liquor Patient Tobacco Use Status: Former Tobacco user Tobacco use type: Cigarette Smoked in Last 30 Days: No e-Cigarette/Vaping Use: Never Used Second Hand Smoke Exposure: No Use of substances other than those prescribed or required for medical reasons: No Advance Directives: No Advance Directives Information Provided: Yes service: No Current occupational status: employed Physical Exam ED Vital Signs: Vital Signs - 24 hr 09/12/22 21:47 09/13/22 04:50 Temperature 101.6 F H 98.9 F Pulse Rate 122 H 91 Respiratory Rate 24 H 18 Blood Pressure 135/92 H 119/59 L Pulse Oximetry 97 98 Oxygen Delivery Method Room Air Room Air BMI result Body Mass Index 60.0 GEN: Well developed, no acute distress, alert, oriented HEENT: Normocephalic, atraumatic, normal external ears, nose appears normal, no oropharyngeal edema or exudates Eyes: Normal to appearance Neck: Supple, no lymphadenopathy Respiratory: Talks in complete sentences, no respiratory distress, clear to auscultation bilaterally Cardiovascular: Regular rate and rhythm, no murmurs rubs or gallops Abdomen: Soft, nontender, nondistended, no guarding, no rebound Back: No CVA tenderness Extremities: No clubbing cyanosis or edema Neurologic: No focal neurologic deficits, cranial nerves 2-12 intact, strength is 5/5 bilaterally, gait normal Skin: No rash , erythematous changes the right lower extremity with mild edema. There is no lymphangitis spread Course Course Course Narrative: 36-year-old female with history of diabetes presents with cellulitis right lower extremity pain symptoms started last 24 hours. She had some fever and chills. Currently she is overall feeling well. She would like to be aggressive start antibiotics on the earlier side. I agree with this at this time. [place] [address] with a very mild lactic acidosis. I recommended appropriate levels of hydration, analgesics. Patient was discharged on August 10 with doxycycline hernández on. Will continue this antibiotic regimen. Patient was instructed to have a very low threshold to return to the emergency department for example the redness and swelling got worse, high fevers, continued chills, she should seek emergent attention. Medical Decision Making Medical Decision Making [facility] Narrative: 36-year-old female with history of diabetes presents with cellulitis right lower extremity pain symptoms started last 24 hours. She had some fever and chills. Currently she is overall feeling well. She would like to be aggressive start antibiotics on the earlier side. I agree with this at this time. [place] [address] with a very mild lactic acidosis. I recommended appropriate levels of hydration, analgesics. Patient was discharged on August 10 with doxycycline hernández on. Will continue this antibiotic regimen. Patient was instructed to have a very low threshold to return to the emergency department for example the redness and swelling got worse, high fevers, continued chills, she should seek emergent attention Differential Diagnosis Differential Diagnoses: The differential diagnosis associated with the presentation includes (Cellulitis, inflammation, contusion, ecchymoses) Cellulitis Admission/Observation Consideration of admission/observation: Escalation of care including admission/observation considered Lab Data [facility] Lab Attestation statement: I reviewed the patient's lab results. 09/12/22 22:07 09/12/22 22:07 Labs: Lab Results 09/12/22 09/12/22 09/13/22 Range/Units 22:07 22:07 04:25 WBC 14.0 H (4.8-10.8) X10*3/uL RBC 4.44 (4.20-5.50) X10*6/uL Hgb 11.3 L (12.0-16.0) g/dl Hct 34.9 L (37.0-47.0) % MCV 78.6 L (80.0-98.0) fL MCH 25.5 L (27.0-33.0) pg MCHC 32.4 (31.0-35.0) g/dl RDW 15.7 (11.0-16.0) % Plt Count 253 (160-400) X10*3/uL MPV 8.3 L (9.4-12.3) fL Immature Gran % (Auto) 0.5 H (0.0-0.4) % Neut % (Auto) 89.2 H (45-73) % Lymph % (Auto) 6.2 L (20-40) % Walsh % (Auto) 3.9 (2-11) % Eos % (Auto) 0.1 (0-4) % Baso % (Auto) 0.1 (0-2) % Lymph # (Auto) 0.9 L (1.2-4.9) X10*3/uL Walsh # (Auto) 0.6 (0.1-1.2) X10*3/uL Eos # (Auto) 0.0 (0.0-0.4) X10*3/uL Baso # (Auto) 0.0 (0.0-0.2) X10*3/uL Abs Immat Gran (auto) 0.07 H (0.00-0.03) X10*3/uL Absolute Neuts (auto) 12.4 H (2.0-8.3) x10*3/uL Absolute Nucleated RBC 0.000 (0.0-0.012) X10*3/uL Nucleated RBC % (auto) 0.0 (0.0-0.2) /100WBC Sodium 133 L (135-145) mmol/L Potassium 4.3 (3.3-5.1) mmol/L Chloride 100 (96-108) mmol/L Carbon Dioxide 24 (22-29) mmol/L Anion Gap 13 (12-20) BUN 14 (9-16) mg/dL Creatinine 0.95 (0.5-1.4) mg/dL Estim Creat Clear Calc 145.4 Estimated GFR > 60 Random Glucose 264 H (60-115) mg/dL Lactic Acid 2.1 H* (0.5-2.0) mmol/L Calcium 8.8 D (8.4-10.2) mg/dL Total Bilirubin 0.8 (0.0-1.0) mg/dL AST 14 (5-31) U/L ALT 16 (0-31) U/L Alkaline Phosphatase 98 (39-117) U/L Total Protein 6.8 (6.5-8.0) g/dL Albumin 3.8 (3.5-5.0) g/dL External Record Review External record reviewed: Inpatient record (Recent discharge summary) Tests considered The following testing was considered but not selected: Lower extremity Doppler ultrasound however did not order very similar presentation recently. Her exam and story is most consistent with cellulitis as opposed to DVT. Prescription Management I considered prescription management with: Pain Medication Chronic Conditions Patient?s care impacted by: Diabetes Discharge Plan Discharge Clinical Impression: Cellulitis of leg, right Patient Disposition: Home, Self-Care Instructions: Cellulitis (ED) Additional Instructions: You presented today with right leg cellulitis. White blood cell count and a mildly elevated lactic acid. At this time, I am recommending you drink appropriate levels of fluids, restart her antibiotics twice a day. I would have a very low threshold to have you come back to the emergency department. Therefore if the redness, swelling, fevers worsen, medially of for re-evaluation. Prescriptions: New doxycycline monohydrate 100 mg capsule 100 mg PO BID 14 Days Qty: 28 0RF amoxicillin 875 mg tablet 875 mg PO BID Qty: 24 0RF Continued amoxicillin 875 mg tablet 875 mg PO BID Qty: 12 0RF doxycycline hyclate 100 mg capsule 100 mg PO BID Qty: 12 0RF No Action multivitamin Tablet 1 tab PO DAILY omeprazole 20 mg Capsule,Delayed Release(Dr/Ec) 20 mg PO DAILY@0630 metformin 500 mg tablet extended release 24 hr 1 tab PO BID Referrals: Stacey Patino MD [Primary Care Provider] - 2 days
[2022-09-13] MEDS: Doxycycline Monohydrate 100 MG CAPSULE PO (05:41)
[2022-09-13] MEDS: Amoxicillin/Potassium Clav 875 MG TABLET PO (05:41)
[2022-09-13 06:30] LABS: Reflex Lactate? Lactic Acid Added
== END 2022-09-13 06:00 | disposition home or self-care (01) ==
PROVIDERS: Emergency Provider Emergency Medicine; PCP Family Medicine
DX: L03.115 Cellulitis of right lower limb (principal); R50.9 Fever, unspecified; E87.20 Acidosis, unspecified; D72.829 Elevated white blood cell count, unspecified; M79.604 Pain in right leg; E11.9 Type 2 diabetes mellitus without complications; E66.9 Obesity, unspecified; Z68.44 Body mass index [BMI] 60.0-69.9, adult; Z87.891 Personal history of nicotine dependence; Z79.84 Long term (current) use of oral hypoglycemic drugs; Z79.899 Other long term (current) drug therapy
CPT/HCPCS: 36415; 80053; 83605; 85025; 87040; 99283; 99284

== ENCOUNTER 2023-06-28 12:54 | Emergency (ER) | payer OTHER, SELFPAY ==
--- NOTE | ~2023-06-28 | XR_ITS ---
EXAMINATION: XR CHEST CLINICAL INFORMATION: Productive cough. COMPARISON: None available. TECHNIQUE: 2 views of the chest were obtained. FINDINGS: Large body habitus. Lungs are well expanded. The opacities at the costophrenic sulci likely represent normal paracardiac fat pads. However, the opacity of the right middle lobe is more pronounced than typically seen for a normal paracardiac fat pad. Therefore, this likely consolidation and/or atelectasis in the medial segment of the right middle lobe. There are no comparison chest radiographs. No pleural effusion. Cardiac silhouette is normal in size. The pulmonary vascular pattern is normal. There is mild spondylosis of the thoracic spine. XR/XR chest 2V IMPRESSION: * There appears to be mild prominence of paracardiac fat pads in this patient of large body habitus. * Also, there is likely increased opacity in the medial segment middle lobe from pneumonia or atelectasis. No pleural effusion.
--- NOTE | 2023-06-28 13:58 | ED.URI ---
HPI - URI/Sore Throat General Chief Complaint: Upper Respiratory Symptoms Stated Complaint: Cough Time Seen by Provider: 06/28/23 15:12 Source: patient Mode of arrival: ambulatory Limitations: no limitations History of Present Illness HPI Narrative: 37 year old female with PMHx significant for obesity, lymphedema, DM, GERD presents to the ED today for evaluation of productive cough x1 week. Has been taking dayquil and nyquil without relief of symptoms. Admits sister who she lives with tested positive for COVID at home yesterday. Patient took home COVID test this morning and 2 days ago which were both negative. Presents today requesting covid test. Denies fever, chills, sore throat, wheezing, sob, chest pain, palpitations. Related Data Home Medications Medication Instructions Recorded Confirmed metformin 500 mg tablet,extended 1 tab PO BID 08/08/22 08/08/22 release 24 hr multivitamin 1 tab PO DAILY 08/08/22 08/08/22 omeprazole 20 mg capsule,delayed 20 mg PO DAILY@0630 08/08/22 08/08/22 release Previous Rx's Medication Instructions Recorded amoxicillin 875 mg tablet 875 mg PO BID #12 tabs 08/10/22 doxycycline hyclate 100 mg capsule 100 mg PO BID #12 caps 08/10/22 amoxicillin 875 mg tablet 875 mg PO BID #24 tabs 09/13/22 doxycycline monohydrate 100 mg 100 mg PO BID 14 days #28 caps 09/13/22 capsule azithromycin 500 mg tablet See Rx Instructions PO .COMPLEX #3 06/28/23 (Zithromax TRI-SOUMYA) tabs Allergies Allergy/AdvReac Type Severity Reaction Status Date / Time mold Allergy Runny Nose Verified 06/28/23 13:59 red dye Allergy Gastrointestinal Verified 06/28/23 13:59 Upset scallops Allergy Unknown Verified 06/28/23 13:59 Review of Systems Review of Systems: Constitutional: No fever, chills, fatigue, night sweats, weight changes ENT/Mouth: No ear pain, hearing loss, nasal congestion, sinus pain, rhinorrhea, sore throat Eyes: No eye pain, swelling, redness, vision changes, discharge Cardio: No chest pain, palpitations, MICHELE, orthopnea, peripheral edema Pulm: No SOB, +cough, +sputum, No wheezing, dyspnea, hemoptysis GI: No nausea, vomiting, hematemesis, abdominal pain, diarrhea, constipation, hematochezia, melena : No irregular bleeding, dysuria, frequency, urgency, hesitancy, hematuria, flank pain, urinary flow changes, urinary incontinence or retention MSK: No back pain, neck pain, joint pain, myalgias Skin: No lesions, rashes Neuro: No weakness, numbness, paresthesias, LOC, dizziness, headache All other systems reviewed and are negative. [facility] Past Medical History Attestation statement: The following information was validated with the patient. Source: old records reviewed and nursing notes reviewed Medical History Lymphedema GERD (gastroesophageal reflux disease) Diabetes Social History Household Members: Friend(s) Housing: Apartment Do you presently have visiting nurse or other home services: No Alcohol intake: current Alcohol intake frequency: holidays/special occasions only Alcohol type: hard liquor Patient Tobacco Use Status: Former Tobacco user Tobacco use type: Cigarette Smoked in Last 30 Days: No e-Cigarette/Vaping Use: Never Used Second Hand Smoke Exposure: No Use of substances other than those prescribed or required for medical reasons: No Advance Directives: No Advance Directives Information Provided: Yes Patient : No service: No Current occupational status: employed Physical Exam Vital Signs: Vital Signs: Last Vital Signs Temp 96.8 F 06/28/23 13:59 Pulse 75 06/28/23 13:59 Resp 16 06/28/23 13:59 BP 143/73 H 06/28/23 13:59 O2 Del Method Room Air 06/28/23 13:59 BMI result Body Mass Index 58.2 Vital signs stable, afebrile. Const: General: cooperative, comfortable, no acute distress, alert and awake Nutritional Appearance: obese Orientation/consciousness: patient oriented x3 Limitations: no limitations HEENT: Ears: hearing grossly normal bilaterally, external ears normal, TM's normal bilaterally, EAC's normal, mastoids normal and no periauricular adenopathy Face and sinus: Yes sinuses nontender Mouth: Normal oral and palatal mucosa present Throat: Yes posterior oropharynx normal, Yes tonsils normal and Yes uvula midline Eyes: General: appearance normal, both eyes and all related structures Conjunctivae: conjunctivae normal Sclerae: sclerae normal Pupils: Equal, round and reactive pupils present Neck: Neck: Yes normal visual inspection and Yes no lymphadenopathy Resp: Effort & Inspection: normal respiratory effort Auscultation: clear to auscultation bilaterally, no rhonchi and no wheezes Cardio: Rate: regular rate Rhythm: regular rhythm Peripheral pulses: radial pulses present Skin: General skin exam: no rashes or lesions noted Neuro: General: patient oriented x3, gait normal and moves all extremities Cranial nerves: Yes Equal, round and reactive pupils present Extrem: General: Yes normal to inspection and Yes capillary refill normal Course Course Course Narrative: RME: 37yo F w/PMHx obesity, lymphedema, DM, GERD, c/o URI sx x1 week w/productive cough. Admits sister tested +COVID. Patient took home test which was negative, states she is here to check another COVID test here (took one this morning & Thursday which were negative). CXR & COVID test ordered Full HPI, ROS and PE to be performed by primary ED provider. Reevaluation(s) Reevaluation #1: Serology negative for covid. CXR showing consolodations to right middle lung lobw suggestive of pneumonia. Informed patient of her serology and image results. As her sister whom she lives with currently has COVID, it may be possible that she had covid at some point and now presents with post-covid pneumonia. > patient is nontoxic appearing, in NAD, sitting comfortably in the chair, normal effort of breathing, lungs CTA b/l >> stable for discharge. > will send soumya to pharmacy for treatment of community acquired pneumonia Medical Decision Making Medical Decision Making [facility] Narrative: 37 year old female with PMHx significant for obesity, lymphedema, DM, GERD presents to the ED today for evaluation of productive cough x1 week. VSS, Nontoxic appearing, NAD. Exam unremarkable. Lungs cta b/l. Normal effort of breathing. Clinical concern for viral syndrome vs pneumonia. Unlikely pneumothorax, PE, strep throat, mono, [employer], retropharyngeal abscess. Covid serology and CXR obtained in triage. Plan to review results and re-evaluate patient. Differential Diagnosis Differential Diagnoses: The differential diagnosis associated with the presentation includes As above. Admission/Observation Not indicated. Lab Data [facility] Lab Attestation statement: I reviewed the patient's lab results. As above. Labs: Lab Results 06/28/23 Range/Units 14:19 COVID-19 ([facility]) Negative (Negative) COVID-19 Clin Com See Note Independent Interpretation I performed an independent interpretation of an: Plain X-Ray Interpretation: CXR with consolidations to middle lobe of right lung, agree with radiologist's interpretation. Radiology Impression Discussion of test interpretation with radiology: I have reviewed the radiologist's reading. Radiologist Impression: XR chest 2V IMPRESSION: * There appears to be mild prominence of paracardiac fat pads in this patient of large body habitus. * Also, there is likely increased opacity in the medial segment middle lobe from pneumonia or atelectasis. No pleural effusion. Independent Historian Clinical information obtained from an independent historian. History obtained from or confirmed by: Other (sister) External Record Review External record reviewed: Inpatient record Prescription Management I considered prescription management with: Antibiotic Chronic Conditions Patient?s care impacted by: Other (DM, obesity) Critical Care Time Critical Care Time Critical Care Time: No Discharge Plan Discharge Clinical Impression: Upper respiratory infection Patient Disposition: Home, Self-Care Instructions: Upper Respiratory Infection (ED), Viral Syndrome (ED) Additional Instructions: You tested negative for COVID today. Your chest x-ray showed consolidations to the right middle lobe suggestive of pneumonia. Azithromycin is an antibiotic. This has been sent to your pharmacy to take over the next 5 days. Take this to completion and do not miss any doses as this may cause infection to come back or worsen. You live with someone who tested positive for COVID. ? Take Ibuprofen or Tylenol as needed for fevers or body aches.? Quarantine for 5 days and ensure you wear a mask. After 5 days you should wear a mask for 5 days after that.? Please refer to the CDC website for updated guidelines Practice social distancing and good hand hygiene. Drink plenty of fluids. Follow-up with your primary care provider this week. Return to the emergency department with new or worsening symptoms. In case of emergency call 911 You can purchase a pulse oximeter from your local pharmacy or grocery store, and monitor your oxygen saturation if it goes below 94% you should return to the emergency department for further evaluation. Prescriptions: New azithromycin [Zithromax TRI-SOUMYA] 500 mg tablet See Rx Instructions .ROUTE .COMPLEX Qty: 3 0RF Rx Instructions: For 250 mg dose pack: take 500 mg today (day 1), then 250 mg for 4 days (days 2-5) No Action multivitamin Tablet 1 tab PO DAILY omeprazole 20 mg Capsule,Delayed Release(Dr/Ec) 20 mg PO DAILY@0630 metformin 500 mg tablet extended release 24 hr 1 tab PO BID amoxicillin 875 mg tablet 875 mg PO BID Qty: 12 0RF doxycycline hyclate 100 mg capsule 100 mg PO BID Qty: 12 0RF doxycycline monohydrate 100 mg capsule 100 mg PO BID 14 Days Qty: 28 0RF amoxicillin 875 mg tablet 875 mg PO BID Qty: 24 0RF Stand Alone Forms: Work/School Release Interventions: ED Discharge Assessment Last Done: 06/28/23 16:16 Discharge Date/Time: 06/28/23 16:17
[2023-06-28 13:59] VITALS: BP 143/73; PULSE 75; RESP 16; TEMP 36; BMI 58.2
--- NOTE | 2023-06-28 14:43 | PC.NURSE ---
pt to xray.
[2023-06-28 14:46] LABS: COVID-19 Test Negative (Negative); IDNOW Serial# BCCEAD1C
--- NOTE | 2023-06-28 15:36 | PC.NURSE ---
pt resting in no apparent distress at this time. respirations remain even and unlabored. no sob/wob noted. able to speak in full/clear sentences w/o difficulty. pt awaiting xray results at this time.
== END 2023-06-28 16:17 | disposition home or self-care (01) ==
PROVIDERS: Physician Assistant; Emergency Provider Emergency Medicine
DX: J06.9 Acute upper respiratory infection, unspecified (principal); R05.9 Cough, unspecified; Z79.899 Other long term (current) drug therapy; Z11.52 Encounter for screening for COVID-19; Z20.828 Contact with and (suspected) exposure to other viral communicable diseases
CPT/HCPCS: 71046; 87635; 99283; 99284